=== PATIENT | female | born 1955 | race Two or more races ===

== ENCOUNTER → 2020-02-05 | Outpatient (CLI) | payer OTHER ==
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
== END | disposition home or self-care (01) ==
LOC: KCIC 15:38
PROVIDERS: ATTEND Nurse Practitioner Family
DX: Z22.7 Latent tuberculosis (principal)
CPT/HCPCS: 71046